=== PATIENT | female | born 1960 | race Caucasian/White ===

== ENCOUNTER → 2017-01-09 | Outpatient (CLI) | payer OTHER ==
[2015-06-06 17:33] VITALS: BP 129/84
[~2017-01-09] MED LIST: DEXL60CA2 PO; ESTR1PAT7 TD; HYDR-2762 PO; WARF-78 PO; ZOLP5TAB5 PO
--- NOTE | 2017-01-09 15:48 | RAD ---
Limited bone scan, 01/09/2017: History: Left knee pain, previous joint replacement Imaging of both lower extremities centered at the knee joint levels was performed following IV injection of 26 mCi of technetium 99m MDP. The following findings are delineated: 1. There is only faintly increased activity present along primarily the tibial margin of the left knee prosthesis. There is extensive activity at the left patellar level, presumably due to the patellar fracture evident on the 01/01/2017 radiographs. 2. Minimally increased activity at the right patella is most likely due to patellofemoral arthritis.
== END | disposition home or self-care (01) ==
LOC: NM 09:10
PROVIDERS: ATTEND Orthopaedic Surgery
DX: M25.562 Pain in left knee (principal); Z96.652 Presence of left artificial knee joint
CPT/HCPCS: 78300; 96374; A9503

== ENCOUNTER 2017-09-11 17:56 | Inpatient (IN) | payer OTHER ==
[2017-09-11 18:35] LABS: ADD MAN DIFF? NO
[2017-09-11 18:37] LABS: BASO % 0 % (0-3); EOS # 0.1 x10^3/uL (0.0-0.7); EOS % 1 % (0-3); HEMATOCRIT 41.1 % (36.0-47.0); HEMOGLOBIN 13.8 g/dL (12.0-15.5); LYMPH # 1.4 x10^3/uL (1.0-4.8); LYMPH % 23 % (24-48); MEAN CORPUSCULAR HEMOGLOBIN 28 pg (25-35); MEAN CORPUSCULAR HGB CONC 34 g/dL (31-37); MEAN CORPUSCULAR VOLUME 84 fL (79-100); MONO # 0.5 x10^3/uL (0.0-1.1); MONO % 8 % (0-9); NEUT # 4.1 x10^3uL (1.8-7.7); NEUT % 68 % (31-73); PLATELET COUNT 273 x10^3/uL (140-400); RED BLOOD COUNT 4.89 x10^6/uL (3.50-5.40); RED CELL DISTRIBUTION WIDTH 13.9 % (11.5-14.5)
[2017-09-11 18:45] LABS: ANION GAP 8 (6-14); BLOOD UREA NITROGEN 14 mg/dL (7-20); BUN/CREATININE RATIO 18 (6-20); CALCIUM 9.4 mg/dL (8.5-10.1); CARBON DIOXIDE 29 mmol/L (21-32); CHLORIDE 106 mmol/L (98-107); CREATININE 0.8 mg/dL (0.6-1.0); GFR 73.9; GLUCOSE 97 mg/dL (70-99); POTASSIUM 3.9 mmol/L (3.5-5.1); SODIUM 143 mmol/L (136-145)
[2017-09-11 18:51] LABS: ALBUMIN 4.5 g/dL (3.4-5.0); ALBUMIN/GLOBULIN RATIO 1.3 (1.0-1.7); ALK PHOS 76 U/L (46-116); ALT (SGPT) 22 U/L (14-59); AST (SGOT) 23 U/L (15-37); MAGNESIUM 2.1 mg/dL (1.8-2.4); TOTAL BILIRUBIN 0.4 mg/dL (0.2-1.0)
[2017-09-11 18:54] LABS: TROPONINI < 0.017 ng/mL (0.000-0.055)
[2017-09-11] MEDS: IV NORMAL SALINE 1000ML BAG 1,000 ML IV (19:01)
[2017-09-11 19:13] LABS: THYROID STIM HORMONE (TSH) 1.119 uIU/mL (0.358-3.74)
[2017-09-11] MEDS: IOHEXOL 300 MG/ML 100ML VIAL. IV (19:50)
[2017-09-11] MEDS: MECLIZINE HCL 12.5 MG TABLET. PO (20:21)
[2017-09-12] MEDS: MECLIZINE HCL 12.5 MG TABLET. PO ×2 (13:29→17:33)
[2017-09-13] MEDS ORDERED: PANTOPRAZOLE 40 MG TABLET.DR. PO (07:30)
== END 2017-09-12 17:45 | disposition home or self-care (01) | DRG 149 ==
LOC: ER 17:56 → 5 SOUTH 09-12 10:14
DX: R42 Dizziness and giddiness (principal); F41.9 Anxiety disorder, unspecified; K21.9 Gastro-esophageal reflux disease without esophagitis; Z79.890 Hormone replacement therapy; Z90.710 Acquired absence of both cervix and uterus; Z96.651 Presence of right artificial knee joint; Z88.1 Allergy status to other antibiotic agents; Z88.2 Allergy status to sulfonamides; Z88.8 Allergy status to other drugs, medicaments and biological substances
CPT/HCPCS: 36415; 70450; 71275; 80053; 83735; 84443; 84484; 85025; 85379; 93005; 93306; 96360; 99285-25; J7030; J8597; Q9967

== ENCOUNTER → 2020-05-12 | Outpatient (CLI) | payer OTHER ==
[2017-09-12 15:00] VITALS: BP 91/60
[~2020-05-12] MED LIST changes: +AMLO2.5T5 PO; +HYDR-2759 PO; -HYDR-2762 PO; +HYDR-2765 PO; +IBUP1CAP12 PO; +LORA10TA3 PO; +MECL-75 PO; +MULT-245 PO; +PANT40TA77 PO; -WARF-78 PO; +WARF5TAB2 PO
== END ==
LOC: LAB 10:55
PROVIDERS: ATTEND Surgery
DX: Z01.812 Encounter for preprocedural laboratory examination (principal); K82.8 Other specified diseases of gallbladder; Z20.828 Contact with and (suspected) exposure to other viral communicable diseases
CPT/HCPCS: U0003

== ENCOUNTER 2020-05-16 07:57 | Day surgery (SDC) | payer OTHER ==
[~2020-05-16] VITALS: Ht 157.5 cm; Wt 80.0 kg
[~2020-05-16 07:57] MED LIST changes: -HYDR-2759 PO; +HYDROmorphone 2 MG/ML VIAL IV PRN; +IV RINGERS,LACTATED 1000ML 1,000 ML IV SCH; +LIDOCAINE 1% PF 2 ML VIAL. ID PRN; +MORPHINE SULFATE 2 MG/ML VIAL. IV PRN; +ONDANSETRON PF 4 MG/2 ML VIAL. IV PRN; +PROCHLORPERAZINE 10 MG/2 ML VIAL. IV PRN; +fentaNYL PF VIAL 100 MCG/2 ML VIAL IV PRN
[2020-05-16] MEDS ORDERED: LIDOCAINE 2% PF 5 ML VIAL. ONE (08:18)
[2020-05-16] MEDS ORDERED: SUCCINYLCHOLINE 200 MG/10 ML VIAL. ONE (08:18)
[2020-05-16] MEDS ORDERED: MIDAZOLAM HCL/PF 2 MG/2 ML VIAL. ONE (08:18)
[2020-05-16] MEDS ORDERED: ONDANSETRON PF 4 MG/2 ML VIAL. ONE (08:18)
[2020-05-16] MEDS ORDERED: DEXAMETHASONE SOD PHOS 4 MG/ML VIAL ONE (08:18)
[2020-05-16] MEDS ORDERED: ROCURONIUM 50 MG/5 ML VIAL. ONE (08:18)
[2020-05-16] MEDS ORDERED: PROPOFOL 10 MG/ML (20ML) VIAL. IV ONE (08:18)
[2020-05-16] MEDS ORDERED: fentaNYL PF VIAL 100 MCG/2 ML VIAL ONE ×2 (08:19→10:38)
[2020-05-16] MEDS ORDERED: IOHEXOL 300 MG/ML 50 ML VIAL. ONE (08:59)
[2020-05-16] MEDS ORDERED: SURGICEL HEMOSTAT 4X8 EACH. ONE (08:59)
[2020-05-16] MEDS ORDERED: BUPIVACAINE MPF 0.5% 30 ML VIAL. ONE (08:59)
[2020-05-16] MEDS ORDERED: PHENYLEPHRINE in 0.9% NACL PF 1 MG/10 ML SYRINGE. IV ONE (09:29)
[2020-05-16] MEDS ORDERED: KETOROLAC 30 MG/ML VIAL. ONE (09:59)
[2020-05-16] MEDS ORDERED: NEOSTIGMINE METHYLSULFATE 5 MG/5 ML SYRINGE. ONE (09:59)
[2020-05-16] MEDS ORDERED: GLYCOPYRROLATE 1 MG/5 ML VIAL. ONE (09:59)
[2020-05-16] MEDS ORDERED: SEVOFLURANE 61 TO 120 MINUTES. IH ONE (10:00)
--- NOTE | 2020-05-16 10:15 | RAD ---
DG INTRAOPERATIVE CHOLANGIOGRAM Clinical Indication: Cholecystectomy Comparison: None. Findings: Fluoroscopic guidance provided by the technologist. Total fluoroscopy time 0.22 minutes. 3 fluoroscopic spot images. Contrast injection in cystic duct remnant. Opacification of the extrahepatic duct. There is spillage into the duodenum. A filling defect in the extrahepatic duct is not seen. Please refer to the operati ve note for further details. IMPRESSION: No evidence of choledocholithiasis. Electronically signed by: Sebas Hsu MD (05/16/2020 10:13 AM) [id number]
--- NOTE | 2020-05-16 10:16 | PDOC4 ---
Operative Note Operative Note Operative Note: Preoperative Diagnosis: Symptomatic cholelithiasis Postoperative Diagnosis: Same Procedure: Laparoscopic cholecystectomy with intraoperative cholangiogram Surgeons: Keshawn Director Process: Renée Pace Anesthesia: Gen. Estimated Blood Loss: 10 mL Specimen: Gallbladder to pathology Drains: None Complications: None Indications: The patient is a 59-year-old female who recently underwent a GI evaluation. Her testing identified gallstones as well as a very low gallbladder ejection fraction. Surgical treatment was offered by means of a laparoscopic cholecystectomy. The risks of surgery were discussed which include bleeding, infection, bile duct injury, bile leak, pain, the potential for additional surgeries or procedures. The patient understands and would like to proceed. Description: The patient was taken to the operating room and laid supine on the operating table. General anesthesia was performed. The abdomen was prepped with ChloraPrep and draped in a standard surgical fashion. In the right upper quadrant a 5 mm trocar was inserted under direct visualization. Initial inspection showed no evidence of visceral injury and no significant adhesions. Inferior to the umbilicus another 5 mm trocar was inserted. In the upper midabdomen a 5 mm trocar was inserted and in the right upper quadrant 1 2.3 mm mini lap grasper was inserted. The gallbladder was retracted cephalad. The cystic duct was dissected free from surrounding tissues. One clip was placed on the duct near the gallbladder junction. An opening was made in the duct and a cholangiocatheter placed within and secured with a clip. Using contrast dye and fluoroscopy an intraoperative cholangiogram was performed that appeared unremarkable. The clip and catheter were then withdrawn. Three clips were placed on the cystic duct and it was divided. The cystic artery was then identified, dissected free, doubly clipped and divided as well. The gallbladder was then mobilized away from the liver with cautery. The infraumbilical 5 millimeter trocar was exchanged for an 11 millimeter trocar. The gallbladder was then placed in an endoscopic bag and extracted at the infraumbilical trocar site. The fascia there was closed with an 0 Vicryl suture. All blood and irrigation fluid was suctioned and hemostasis was good. The remaining ports were removed and the pneumoperitoneum was relieved. The skin incisions were injected with half percent Marcaine with epinephrine, and all were closed using 4-0 Monocryl suture. Steri-Strips and dressings were then applied. The patient tolerated the procedure well and was sent to the recovery room in stable condition. At the end of the case all counts were correct. LILI BARRIOS MD May 16, 2020 10:16
--- NOTE | 2020-05-16 10:18 | DISCH ---
DISCHARGE INSTRUCTIONS Condition on Discharge Condition on Discharge: Stable Activity After Discharge Activity Instructions for Disc: Other, see below (no lifting over 20 lbs X 2 weeks) Diet after Discharge Diet after Discharge: Regular Wound Incision Care Wound/Incision Care: Other, see below (may remove bandaids tomorrow and shower) Follow-Up Follow up with: Dr Barrios in 2 weeks in office, call for appointment [phone] LILI BARRIOS MD May 16, 2020 10:18
[2020-05-16] MEDS ORDERED: HYDR-2759 PO (10:23)
[2020-05-16] MEDS ORDERED: HYDROcodone/APAP 5/325MG 1 TAB TABLET PO ONE ×2 (10:30)
[2020-05-16] MEDS: fentaNYL PF VIAL 100 MCG/2 ML VIAL IV PRN ×2 (10:40→10:50)
[2020-05-16 11:25] VITALS: BP 137/79
== END 2020-05-16 12:00 | disposition home or self-care (01) ==
LOC: SURG 07:57
PROVIDERS: ATTEND Surgery
DX: K80.80 Other cholelithiasis without obstruction (principal); I10 Essential (primary) hypertension; K21.9 Gastro-esophageal reflux disease without esophagitis; M19.90 Unspecified osteoarthritis, unspecified site; Z90.710 Acquired absence of both cervix and uterus; Z98.890 Other specified postprocedural states; Z87.891 Personal history of nicotine dependence; Z79.899 Other long term (current) drug therapy; Z72.89 Other problems related to lifestyle; Z88.1 Allergy status to other antibiotic agents; Z88.2 Allergy status to sulfonamides; Z88.8 Allergy status to other drugs, medicaments and biological substances; Z82.49 Family history of ischemic heart disease and other diseases of the circulatory system
CPT/HCPCS: 47563; 74300; J0330; J1100; J1885; J1956; J2250; J2370; J2405; J2704; J2710; J3010; J3490; Q9967